=== PATIENT | male | born 1980 ===

== ENCOUNTER 2022-09-19 22:37 | Emergency (ER) | payer MEDICAID ==
[2022-09-19] MEDS: traMADol 50 MG Tab PO ONE (23:39)
[2022-09-20 00:40] VITALS: BP 102/72; PULSE 80
== END 2022-09-20 00:21 | disposition home or self-care (01) ==
LOC: LL.ED 22:37
DX: S69.91XA Unspecified injury of right wrist, hand and finger(s), initial encounter (principal); Z88.8 Allergy status to other drugs, medicaments and biological substances; W00.9XXA Unspecified fall due to ice and snow, initial encounter
CPT/HCPCS: 73110-RT; 99283; A9270-GY